=== PATIENT | female | born 1970 | race African-American/Black ===

== ENCOUNTER 2017-04-08 10:27 | Emergency (ER) | payer MEDICAID ==
[~2017-04-08] VITALS: Ht 162.6 cm; Wt 91.0 kg
[~2017-04-08 10:27] MED LIST: FERR1TAB25 PO; MULT-1116 PO
[2017-04-08 14:54] VITALS: BP 135/84
[2017-04-08] MEDS ORDERED: ACETAMINOPHEN 500MG TABLET PO ONE (15:00)
== END 2017-04-08 17:15 | disposition home or self-care (01) ==
LOC: ER 15:16
DX: S80.01XA Contusion of right knee, initial encounter (principal); S80.02XA Contusion of left knee, initial encounter; S60.211A Contusion of right wrist, initial encounter; R03.0 Elevated blood-pressure reading, without diagnosis of hypertension; W01.0XXA Fall on same level from slipping, tripping and stumbling without subsequent striking against object, initial encounter; Y93.89 Activity, other specified; Y92.69 Other specified industrial and construction area as the place of occurrence of the external cause; S39.012A Strain of muscle, fascia and tendon of lower back, initial encounter
CPT/HCPCS: 73110; 73562; 81025; 99284; Z7610

== ENCOUNTER 2018-10-15 09:29 | Emergency (ER) | payer MEDICAID, OTHER ==
[~2018-10-15] VITALS: Ht 157.5 cm; Wt 98.7 kg
[2018-10-15 09:34] VITALS: BP 125/78
[2018-10-15] MEDS ORDERED: ACETAMINOPHEN 500MG TABLET PO ONE (11:30)
== END 2018-10-15 12:06 | disposition home or self-care (01) ==
LOC: ER 09:48
DX: B34.9 Viral infection, unspecified (principal)
CPT/HCPCS: 71045; 81025; 99283

== ENCOUNTER 2018-12-27 08:56 | Emergency (ER) | payer MEDICAID, OTHER ==
[~2018-12-27] VITALS: Ht 165.1 cm; Wt 85.0 kg
[2018-12-27] MEDS ORDERED: ACETAMINOPHEN 325MG TABLET PO ONE (10:00)
[2018-12-27 11:15] VITALS: BP 122/84
== END 2018-12-27 11:16 | disposition home or self-care (01) ==
LOC: ER 09:49
DX: J06.9 Acute upper respiratory infection, unspecified (principal); Z98.890 Other specified postprocedural states
CPT/HCPCS: 71045; 87070; 87430; 99284

== ENCOUNTER 2019-06-30 09:06 | Emergency (ER) | payer MEDICAID, OTHER ==
[~2019-06-30] VITALS: Ht 162.6 cm; Wt 84.0 kg
[2019-06-30] MEDS ORDERED: HYDROCODONE/ACETAMINOPHEN 5/325MG TABLET PO ONE (10:00)
[2019-06-30 10:15] VITALS: BP 142/94
== END 2019-06-30 10:48 | disposition home or self-care (01) ==
LOC: ER 09:06
DX: K08.89 Other specified disorders of teeth and supporting structures (principal)
CPT/HCPCS: 99283

== ENCOUNTER 2022-08-29 11:50 | Emergency (ER) | payer OTHER ==
[~2022-08-29] VITALS: Ht 162.6 cm; Wt 100.0 kg
[2022-08-29 11:57] VITALS: BP 146/86
[2022-08-29] MEDS ORDERED: IBUPROFEN 600MG TABLET PO STA (13:15)
[2022-08-29] MEDS ORDERED: NAPR-681 PO (15:53)
== END 2022-08-29 16:25 | disposition home or self-care (01) ==
LOC: ER 11:50
DX: J02.9 Acute pharyngitis, unspecified (principal); J06.9 Acute upper respiratory infection, unspecified; Z98.890 Other specified postprocedural states; Z20.822 Contact with and (suspected) exposure to COVID-19
CPT/HCPCS: 81025; 87070; 87426; 87430; 99283; C9803

== ENCOUNTER 2022-12-14 10:52 | Emergency (ER) | payer MEDICAID ==
[~2022-12-14] VITALS: Ht 162.6 cm; Wt 87.0 kg
[~2022-12-14 10:52] MED LIST changes: +NAPR-681 PO
[2022-12-14] MEDS ORDERED: ACETAMINOPHEN 325MG TABLET PO ONE (13:15)
[2022-12-14] MEDS ORDERED: HYDROCODONE/ACETAMINOPHEN 7.5/325MG TABLET PO ONE (14:30)
[2022-12-14] MEDS ORDERED: TOPUD PO (14:45)
[2022-12-14] MEDS ORDERED: NAPR-681 PO (14:45)
[2022-12-14] MEDS ORDERED: P50 PO (14:53)
[2022-12-14 15:23] VITALS: BP 127/85
== END 2022-12-14 15:22 | disposition home or self-care (01) ==
LOC: ER 10:52
DX: M25.571 Pain in right ankle and joints of right foot (principal); E66.01 Morbid (severe) obesity due to excess calories; M19.90 Unspecified osteoarthritis, unspecified site; Z98.890 Other specified postprocedural states
CPT/HCPCS: 73610; 73630; 99284; Z7610

== ENCOUNTER 2024-10-31 12:00 | Emergency (ER) | payer MEDICAID, OTHER ==
[~2024-10-31] VITALS: Ht 162.6 cm; Wt 100.0 kg
[~2024-10-31 12:00] MED LIST changes: +P50 PO; +TOPUD PO
[2024-10-31 12:06] VITALS: O2SAT 99
[2024-10-31 12:32] VITALS: BP 166/101; PULSE 90; RESP 18; TEMP 97.7; O2SAT 100
[2024-10-31] MEDS: ACETAMINOPHEN 500MG TABLET PO ONE (14:36)
[2024-10-31 15:17] LABS: CLARITY URINE CLEAR (CLEAR); COLOR URINE YELLOW (YELLOW); GLUCOSE URINE NEGATIVE (NEGATIVE); KETONES URINE NEGATIVE (NEGATIVE); LEUKOCYTE ESTERASE URINE NEGATIVE (NEGATIVE); NITRITE URINE NEGATIVE (NEGATIVE); OCCULT BLOOD URINE NEGATIVE (NEGATIVE); PH URINE 5.5 (4.5-8.0); PROTEIN URINE NEGATIVE (NEGATIVE); SPECIFIC GRAVITY URINE 1.021 (1.005-1.030); UROBILINOGEN URINE 0.2 E.U./dL (0.2-1.0)
[2024-10-31] MEDS: KETOROLAC 30MG/ML VIAL IM ONE (15:19)
[2024-10-31] MEDS ORDERED: LIDO700A15 TP (15:40)
[2024-10-31] MEDS ORDERED: METH-653 MT (15:40)
[2024-10-31] MEDS ORDERED: IBUP-2029 MT (15:40)
== END 2024-10-31 16:35 | disposition home or self-care (01) ==
LOC: ER 12:00
DX: M54.50 Low back pain, unspecified (principal); Z98.890 Other specified postprocedural states
CPT/HCPCS: 99283; 81003; 81025; 96372; J1885